=== PATIENT | female | born 1995 | race Caucasian/White ===

== ENCOUNTER 2025-06-21 14:05 | Outpatient (AMB) | payer MEDICAID, SELFPAY ==
[2025-06-21 14:15] VITALS: BP 107/69; PULSE 90; RESP 18; TEMP 36.2; O2SAT 98; BMI 22.8
--- NOTE | 2025-06-21 14:15 | OBCLNT_ITS ---
Vital Signs 06/21/25 14:15 Height 1.6 m Height Method Stated Weight 58.684 kg Weight Measurement Method Standing Scale BMI 22.8 BP 107/69 Blood Pressure Source Automatic Cuff Blood Pressure Location Left Upper Arm Position Sitting Respiration 18 Pulse 90 Pulse Source Monitor Temp 97.2 F Temp Source Oral Pulse Oximetry (%) 98 Oxygen Delivery Method Room Air Allergies/Home Meds Allergies & Medications Allergies No Known Allergies Allergy (Verified 06/21/25 14:16) Medication Reconciliation ferrous sulfate 325 mg (65 mg iron) tablet (Iron (ferrous sulfate)) 325 mg PO QDAY 10/29/19 [History Confirmed 06/21/25] vitamins-iron fumarate 27 mg iron-folic acid 0.8 mg tablet ( Vitamin) 1 tab PO QDAY 10/29/19 [History Confirmed 06/21/25] Intake Visit Data Collection New Patient or Established: Established Patient (seen at [facility] within 3 years) Reason for Visit:: OBI Seen by Clinical Staff ONLY (RN/MA): No 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 Do You Feel Safe at Home: Yes Authorities Contacted: N/A PCP or OBGYN visit in last 3 months: Yes Date of Last PCP or OBGYN visit: 05/29/25 Hx Now: Yes Are you currently on any form of Control: No Last menstrual period: 03/07/25 Pain Present Currently: No Pain Scale Used: Nelson-Hussein/Numerical Pain scale:: 0 Smoking Status Smoking Status: Never smoker Immunizations Flu Vaccine in the Last 12 Months: No Flu Vaccine Exclusion Criteria: Refused by Patient Questionnaires Covid-19 Vaccine Questionnaire Has patient been vacinated for Covid-19 Have you been vacinated for Covid-19: Yes PHQ-9 PHQ-2 Over the last 2 weeks, how often have you been bothered by any of the following problems? 1. Little interest or pleasure in doing things: not at all 2. Feeling down, depressed, or hopeless: not at all Total score: 0 PHQ-9 3. Trouble falling or staying asleep, or sleeping too much: Not at all 4. Feeling tired or having little energy: Not at all 5. Poor appetite or overeating: Not at all 6. Feeling bad about yourself - or that you are a failure or have let yourself or your family down: Not at all 7. Trouble concentrating on things, such as reading the newspaper or watching television: Not at all 8. Moving or speaking so slowly that other people could have noticed? - Or the opposite - being so fidgety or restless that you have been moving around a lot more than usual: not at all 9. Thoughts that you would be better off or of hurting yourself in some way: Not at all Total score: 0 If you checked off any problems, how difficult have these problems made it for you to do your work, take care of things at home, or get along with other people?: not difficult at all Source: Developed by Drs. José Lebron, Juli Macedo, Kingston Escudero and colleagues, with an educational marine from [employer]. Depression screen completed yes Social History Living Situation History Marital Status: Lives With: Family Housing: House Tobacco History Smoking Status: Never smoker Second Hand Smoke Exposure: No Alcohol History Alcohol Intake: Never Alcohol Intake Frequency: 0-2 Drinks per Day Domestic Abuse History Do You Feel Safe at Home: Yes History of Present Illness HPI Narrative 30-year-old 3 para 2 for OBI. Patient did apprise that it test at [employer]. Her last period March 07, 2025. This gives a due date of December 13, 2025. Patient is her dates. Denies social habits. Denies surgery. Denies chronic illness. Patient had 2 previous births uncomplicated. She denies any allergies. She denies any existence of chronic illnesses and she denies social habits. Denies leaking or bleeding at this time and she reports light movement. Both her and her partner are happy about the baby CFA: Past Medical History Past Medical History: No Hx Neurological Disorders, No Hx Breast Cancer, No Hx Cardiac Disorders, No Hx Cancer, Yes Hx Blood Disorders, Yes Hx Anemia, No Hx Gastrointestinal Disorders, No Hx Renal Disease, No Hx Diabetes Mellitus Type 1 and No Hx Diabetes Mellitus Type 2 OB Initial Visit OB Flowsheet OB Flowsheet Initial Weight: Not Recorded Date -?-?-?-?-?-?-?-?-?-?-?-?- EGA Weight BP Alb Glu CTX Pres Fundal ht FHR Mov Dilation Station Effa cement Hx Notes Visit Note 06/21/25 -?-?-?-?-?-?-?-?-?-?-?-?- 15w 1d 58.684 kg 107/69 absent unknown 15 145 active 30-year-old 3 para 2 for OBI. She has a last period March 07, 2025. And her EDC is December 13, 2025. She denies leaking, bleeding, contractions. Reports light movement. Both her and her partner are happy about the baby Continue vitamins. OB panel today with A1c, NIPT, carrier screens and AFP. And scheduled on ultrasound for patient at [facility] in [place]. Denies SAB precautions. And return in 4 weeks for OB check Menstrual History Menstrual reliability: definite Flow: normal Menstrual regularity: regular Monthly: Yes Age at menarche: 14 On control pills at conception: No OB History : 3 Para: 2 # of Living Children: 2 Delivery History 1st : Child's name: NOT PROVIDED date: 12/04/19 sex: female Delivery type: vaginal weight (lbs): 3628.739 g History of depression before or after : No 2nd : Child's name: NOT PROVIDED date: 05/18/23 sex: male Delivery type: vaginal weight (lbs): 3175.147 g History of depression before or after : No Infection History & Risk Evaluation History of STDs: none HIV risk evaluation: low risk Hepatitis B risk evaluation: low risk Patient or partner has history of Genital Herpes: No Varicella/chicken pox status: immunized Genetic Screening & History Genetic Screening/Teratology Counseling - Includes patient, baby's father, or anyone in either family with: 1. Patient's age 35 years or older as of estimated date of delivery: No 2. Thalassemia (Mohawk, Vietnamese, Mediterranean, or Background); MCV less than 80: No 3. Neural Tube Defect (Meningomyelocele, Spina Bifida, or Anencephaly): No 4. Congenital Heart Defect: No 5. Down Syndrome: No 6. Selwyn-Sachs (Ashkenazi Evangelical, Cajun, [place]): No 7. Gwen Disease (Ashkenazi Evangelical): No 8. Familial Dysautonomia (Ashkenazi Evangelical): No 9. Sickle Cell Disease or Trait (): No 10. Hemophilia or other blood disorders: No 11. Muscular Dystrophy: No 12. Cystic Fibrosis: No 13. Buford's Chorea: No 14. Mental Retardation/Autism: No 15. Other inherited genetic or chromosomal disorder: No 16. Maternal Metabolic Disorder (EG,TYPE 1 Diabetes, PKU): No 17. Patient or baby's father had a child with defects not listed above: No 18. Recurrent loss or a stillbirth: No 19. Medications (including supplements, vitamins, herbs or otc drugs)/illicit/recreational drugs/alcohol since last menstrual period: No 20. Any other: No Infection History 1. Live with someone with TB or exposed to TB: No 2. Rash or viral illness since last menstrual period: No 3. Hepatitis B,C: No Other (see comments) Source: [employer] Review of Systems Review of Systems Systems Reviewed: All systems reviewed, normal except as documented Exam General Limitations: no limitations General Appearance: alert, in no apparent distress, comfortable, cooperative, healthy appearing, well developed and well groomed Head Head exam: atraumatic, normocephalic and normal inspection Resp Respiratory exam: Present normal lung sounds bilaterally Card Cardiovascular exam: Present regular rate, normal rhythm and normal heart sounds Abdominal Abdominal exam: Present soft and normal bowel sounds Extremities Extremities exam: Present normal inspection and full ROM Psych Psychiatric exam: Present normal affect and normal mood Office Procedures OBC Clinic LOC & Office Proc's Nursing/Assessment Patient Status: Established Patient OB Clinic Nursing Assessment: Medication Reconciliation, Update PMH in EMR and Vital Signs OB Clinic Coordination of Care: Consent,records obtained, informed consent, Education Simp Pt/Fam, Lab and Imaging orders, Results/Orders obtained and Staff clarify orders Special Needs: Heart tones Established Patient Charge Established Patient Point Assignment: 110 Established Patient Point Charge: EP Level 3 (80-115) Assessment & Plan Diagnosis / Problem List (1) Encounter for supervision of high risk in second trimester, antepartum: Status: Acute Plan Reviewed dates and history with patient. Continue prenatals. Schedule ultrasound at [facility]. OB panel today with hemoglobin A1c, NIPT and carrier screen, AFP and. Discussed SAB precautions. Return in 4 weeks OB check Additional Plan Follow Up: 4 Weeks (obc)
== END 2025-06-21 14:42 | disposition home or self-care (01) ==
LOC: HODSOBC 14:05
PROVIDERS: Supervising Provider Advanced Practice Midwife; Visit Provider Advanced Practice Midwife
DX: O09.92 Supervision of high risk pregnancy, unspecified, second trimester (principal); Z3A.15 15 weeks gestation of pregnancy
CPT/HCPCS: 99213; G0463

== ENCOUNTER 2025-07-19 11:00 | Outpatient (AMB) | payer MEDICAID, SELFPAY ==
--- NOTE | 2025-07-19 11:13 | OBCLNT_ITS ---
Vital Signs 07/19/25 11:23 Height 1.6 m Height Method Stated Weight 59.421 kg Weight Measurement Method Standing Scale BMI 23.2 BP 103/69 Blood Pressure Source Automatic Cuff Blood Pressure Location Left Upper Arm Position Sitting Respiration 18 Pulse 95 Pulse Source Monitor Temp 98.2 F Temp Source Oral Pulse Oximetry (%) 98 Oxygen Delivery Method Room Air Allergies/Home Meds Allergies & Medications Allergies No Known Allergies Allergy (Verified 07/19/25 11:24) Medication Reconciliation ferrous sulfate 325 mg (65 mg iron) tablet (Iron (ferrous sulfate)) 325 mg PO QDAY 10/29/19 [History Confirmed 07/19/25] vitamins-iron fumarate 27 mg iron-folic acid 0.8 mg tablet ( Vitamin) 1 tab PO QDAY 10/29/19 [History Confirmed 07/19/25] ferrous sulfate 325 mg (65 mg iron) tablet 325 mg PO BID #60 tabs 07/19/25 [Rx] Immunizations Immunizations Flu Vaccine in the Last 12 Months: No Flu Vaccine Exclusion Criteria: No Exclusion Criteria Care OB Visit Log OB Flowsheet Initial Weight: Not Recorded Date -?-?-?-?-?-?-?-?-?-?-?-?- EGA Weight BP Alb Glu CTX Pres Fundal ht FHR Mov Dilation Station Effacement Hx Notes Visit Note 06/21/25 -?-?-?-?-?-?-?-?-?-?-?-?- 15w 1d 58.684 kg 107/69 absent unknown 15 145 active 30-year-old 3 para 2 for OBI. She has a last period March 07, 2025. And her EDC is December 13, 2025. She denies leaking, bleeding, contractions. Reports light movement. Both her and her partner are happy about the baby Continue vitamins. OB panel today with A1c, NIPT, carrier screens and AFP. And scheduled on ultrasound for patient at [facility] in [place]. Denies SAB precautions. And return in 4 weeks for OB check PEDRO Calculator Estimated Delivery Date Method Current WG Current Estimate 12/12/25 LMP (Certain) 19w 1d Notes Visit Date: 06/21/25 Last Updated by: Va Chou CNM 30 yo . LMP 03/07/25. EDC: 12/13/25 Office Procedures OBC Clinic LOC & Office Proc's Nursing/Assessment Patient Status: Established Patient OB Clinic Nursing Assessment: Medication Reconciliation, Update PMH in EMR and Vital Signs OB Clinic Coordination of Care: Consent,records obtained, informed consent, Education Simp Pt/Fam, Lab and Imaging orders, Results/Orders obtained and Staff clarify orders Special Needs: Heart tones Established Patient Charge Established Patient Point Assignment: 110 Established Patient Point Charge: EP Level 3 (80-115) Assessment & Plan Diagnosis / Problem List (1) Encounter for supervision of high risk in second trimester, antepartum: Status: Acute Plan Discussed labs. Iron twice a day. Increase iron foods. Keep appointment with MFM next week. Discussed precautions. Return for OB check
[2025-07-19 11:23] VITALS: BP 103/69; PULSE 95; RESP 18; TEMP 36.8; O2SAT 98; BMI 23.2
== END 2025-07-19 11:43 | disposition home or self-care (01) ==
LOC: HODSOBC 11:00
PROVIDERS: Supervising Provider Advanced Practice Midwife; Visit Provider Advanced Practice Midwife
DX: O09.92 Supervision of high risk pregnancy, unspecified, second trimester (principal); Z3A.19 19 weeks gestation of pregnancy
CPT/HCPCS: 99213; G0463

== ENCOUNTER 2025-08-21 08:24 | Outpatient (AMB) | payer MEDICAID, SELFPAY ==
[2025-08-21 08:31] VITALS: BP 99/66; PULSE 92; RESP 18; TEMP 36.2; O2SAT 98; BMI 24.8
--- NOTE | 2025-08-21 08:31 | OBCLNT_ITS ---
Vital Signs 08/21/25 08:31 Height 1.6 m Height Method Stated Weight 63.56 kg Weight Measurement Method Standing Scale BMI 24.8 BP 99/66 Blood Pressure Source Automatic Cuff Blood Pressure Location Left Upper Arm Position Sitting Respiration 18 Pulse 92 Pulse Source Monitor Temp 97.2 F Temp Source Oral Pulse Oximetry (%) 98 Oxygen Delivery Method Room Air Allergies/Home Meds Allergies & Medications Allergies No Known Allergies Allergy (Verified 08/21/25 08:32) Medication Reconciliation ferrous sulfate 325 mg (65 mg iron) tablet (Iron (ferrous sulfate)) 325 mg PO QDAY 10/29/19 [History Confirmed 08/21/25] vitamins-iron fumarate 27 mg iron-folic acid 0.8 mg tablet ( Vitamin) 1 tab PO QDAY 10/29/19 [History Confirmed 08/21/25] ferrous sulfate 325 mg (65 mg iron) tablet 325 mg PO BID #60 tabs 07/19/25 [Rx Confirmed 08/21/25] Immunizations Immunizations Flu Vaccine in the Last 12 Months: No Flu Vaccine Exclusion Criteria: No Exclusion Criteria Care OB Visit Log OB Flowsheet Initial Weight: Not Recorded Date -?-?-?-?-?-?-?-?-?-?-?-?- EGA Weight BP Alb Glu CTX Pres Fundal ht FHR Mov Dilation Station Effacement Hx Notes Visit Note 06/21/25 -?-?-?-?-?-?-?-?-?-?-?-?- 15w 1d 58.684 kg 107/69 absent unknown 15 145 active 30-year-old 3 para 2 for OBI. She has a last period March 07, 2025. And her EDC is December 13, 2025. She denies leaking, bleeding, contractions. Reports light movement. Both her and her partner are happy about the baby Continue vitamins. OB panel today with A1c, NIPT, carrier screens and AFP. And scheduled on ultrasound for patient at [facility] in [place]. Denies SAB precautions. And return in 4 weeks for OB check 07/19/25 -?-?-?-?-?-?-?-?-?-?-?-?- 19w 1d 59.421 kg 103/69 absent unknown 19 145 active Positive movement. No OB complaints. Denies leaking, bleeding, contractions. Patient has MFM appointment in [facility] in a week Keep MFM appointment next week. Discussed labs. Discussed labor precautions. Continue prenatals. Return in a week OB check Keep MFM appointment next we ek. Discussed labs. Discussed labor precautions. Continue prenatals. Return in a week OB check. iron bid and iron food PEDRO Calculator Estimated Delivery Date Method Current WG Current Estimate 12/12/25 LMP (Certain) 23w 6d Notes Visit Date: 07/19/25 Last Updated by: Va Chou CNM A+, antibody screen negative, RPR nonreactive, rubella immune, hepatitis B negative, hepatitis C negative, HIV negative, GC and chlamydia negative. Hematocrit 31, hemoglobin was 10.5, platelets are 199.UA clear, NIPT-/female,SMA-,AFP-,CF- Visit Date: 06/21/25 Last Updated by: Va Chou CNM 30 yo . LMP 03/07/25. EDC: 12/13/25 Office Procedures OBC Clinic LOC & Office Proc's Nursing/Assessment Patient Status: Established Patient OB Clinic Nursing Assessment: Medication Reconciliation, Update PMH in EMR and Vital Signs OB Clinic Coordination of Care: Complex Care and Chronic Disease 1-5, Education Simp Pt/Fam, Lab and Imaging orders, Results/Orders obtained and Staff clarify orders Special Needs: Heart tones Established Patient Charge Established Patient Point Assignment: 130 Established Patient Point Charge: EP Level 4 (120-155) Assessment & Plan Diagnosis / Problem List (1) Encounter for supervision of high risk in second trimester, antepartum: Status: Acute Plan Third trimester labs next visit. Follow-up ultrasound at [facility] for 4 weeks. Discussed labor precautions. Return in 4 weeks OB check
== END 2025-08-21 08:59 | disposition home or self-care (01) ==
LOC: HODSOBC 08:24
PROVIDERS: Supervising Provider Advanced Practice Midwife; Visit Provider Advanced Practice Midwife
DX: O09.92 Supervision of high risk pregnancy, unspecified, second trimester (principal); Z3A.23 23 weeks gestation of pregnancy
CPT/HCPCS: 99214; G0463